=== PATIENT | male | born 1945 | race Caucasian/White ===

== ENCOUNTER 2018-05-28 17:23 | Emergency (ER) | payer OTHER ==
[~2018-05-28] VITALS: Ht 185.4 cm; Wt 93.9 kg
[~2018-05-28 17:23] MED LIST: LIPITOR20 MG PO
[2018-05-28 18:12] VITALS: BP 146/83
== END 2018-05-28 18:13 | disposition home or self-care (01) ==
LOC: ER 17:23
DX: R68.2 Dry mouth, unspecified (principal); T46.6X5A Adverse effect of antihyperlipidemic and antiarteriosclerotic drugs, initial encounter; E78.5 Hyperlipidemia, unspecified

== ENCOUNTER 2018-08-23 17:55 | Emergency (ER) | payer OTHER ==
[~2018-08-23] VITALS: Ht 188 cm; Wt 86.2 kg
[2018-08-23] MEDS ORDERED: ESCITALOPRAM OX10 MG PO (18:15)
[2018-08-23] MEDS ORDERED: XALATAN2.5 ML OPHTHALMIC (18:15)
[2018-08-23] MEDS ORDERED: ZOCOR20 MG PO (18:15)
[2018-08-23] MEDS ORDERED: HYDROCHLOROTH12.5 M2 PO (18:16)
[2018-08-23 20:03] VITALS: BP 156/87
[2018-08-29] MEDS ORDERED: XANAX 0.5 MG0.5 MG PO (15:31)
== END 2018-08-23 20:10 | disposition home or self-care (01) ==
LOC: ER 17:55
DX: T17.228A Food in pharynx causing other injury, initial encounter (principal); X58.XXXA Exposure to other specified factors, initial encounter; Y93.89 Activity, other specified; Y92.89 Other specified places as the place of occurrence of the external cause; Y99.8 Other external cause status

== ENCOUNTER → 2018-08-31 | Outpatient (CLI) | payer OTHER ==
[~2018-08-31] VITALS: Ht 188 cm; Wt 86.2 kg
[~2018-08-31] MED LIST changes: +ESCITALOPRAM OX10 MG PO; +HYDROCHLOROTH12.5 M2 PO; +XALATAN2.5 ML OPHTHALMIC; +XANAX 0.5 MG0.5 MG PO; +ZOCOR20 MG PO
--- NOTE | 2018-09-02 08:24 | P ---
[facility] [place] [address] [place] [address] PROCEDURE REPORT Name: BENEDICTO TAVARES Room #: REG [facility].#: [id number] Admission: 08/31/18 ������������������ Attend Phys: Romero Schwartz Discharge: ������������������ Date of : 43 Report #: [id number] THIS REPORT FOR: //name// CC: Romero Olivia MD DATE OF SERVICE: 08/31/2018 PROCEDURE PERFORMED: Upper endoscopy with biopsies and esophageal dilation. HISTORY OF PRESENT ILLNESS: The patient is a 73-year-old male with a history of dysphagia who actually had a food impaction last week, was seen by myself in the ER, but the food bolus passed spontaneously. He now presents for upper endoscopy with possible dilation. He does report some mild heartburn at times. DESCRIPTION OF PROCEDURE: The risks and benefits of the procedure were explained to the patient, those risks including but not limited to bleeding, perforation and the risk of sedation. He understood these risks and gave informed consent. Sedation was given using propofol per anesthesia. Next, using a standard Olympus upper endoscope, the scope was placed in the patient's mouth and advanced under direct vision through the esophagus, stomach and into the second portion of the duodenum. The upper esophagus was normal. In the mid and distal esophagus, possible changes of eosinophilic esophagitis were noted. Biopsies were obtained. At the GE junction, grade A erosive esophagitis was noted with a stricture as well. I was able to pass the scope through this area. Overall, the gastric mucosa was normal in the fundus and body and mild gastritis was noted in the gastric antrum. Biopsies were obtained to rule out H. pylori. The duodenal bulb showed [id number] duodenitis. No evidence of ulcerations or bleeding. The first and second portion of the duodenum was normal. The scope was then brought back up into the patient's stomach and a Savary guidewire was inserted through the scope, leaving the wire in place as the scope was then withdrawn. Next, I did serial dilations of the esophagus, starting with 33 and ending with 48 observing each time with the endoscope after dilation. There was a small mucosal tear after dilation at 48. No further dilations were performed. No evidence of bleeding. At this point, the scope was then withdrawn and the procedure terminated. The patient tolerated the procedure well. IMPRESSION: 1. Grade A erosive esophagitis. 2. Stricture distal esophagus. 3. Possible eosinophilic esophagitis. 4. Gastritis. 5. Duodenitis. [facility] [address] [place] [address] PROCEDURE REPORT Name: EBNEDICTO TAVARES Room #: REG CLLianna Rivero#: [id number] Admission: 08/31/18 ������������������ Attend Phys: Romero Schwartz Discharge: ������������������ Date of : 43 Report #: [id number] RECOMMENDATIONS: 1. Await biopsy results. 2. Recommend daily PPI therapy. 3. Observe the patient post-dilation. Thank you for allowing me to participate in his care. ��������������������������������������������� <ELECTRONICALLY SIGNED> ���������������������������������������� By: Romero Ventura MD ��������������������������������������������� 09/02/18 0824 1054 2330 Romero Ventura MD /nt
--- NOTE | 2018-09-02 13:08 | PATH ---
[facility] [place] [address] PATHOLOGY RPT PROCEDURE Name: BENEDICTO TAVARES Room #: REG JER[facility]Y Elizabeth.#: [id number] ������������������ Admission: 08/31/18 ������������������ Date of : 43 Discharge: Report #: [id number] Path Case #: [id number] [facility] Accession Number: [id number] . 01 Material submitted: . PART A: stomach - BX GASTRITIS PART B: esophagus - BX ESOPHAGUS . 01 Clinical history: . Pre-op diagnosis: Dysphagia Post-op diagnosis: Gastritis, esophagitis, esophageal stricture A. R/O H. pylori B. R/O eosinophilic esophagitis . 02 Diagnosis: A. Gastric biopsy "biopsy gastritis": - Mild chronic reactive gastropathy. - The immunoperoxidase stain for Helicobacter pylori is negative. . B. Squamous mucosa "biopsy esophagitis": - Eosinophilic esophagitis with 30 to 40 eosinophils/high power field. - There is no evidence of goblet cell metaplasia, dysplasia or malignancy. . (SHA:pit 09/02/2018) QTP/09/02/2018 . 02 Electronically signed: . Darrius Leyva MD, Pathologist NPI- [id number] . 01 Gross description: . A. The specimen is received in formalin, labeled "Benedicto Tavares, biopsy gastritis, R/O H. pylori". Received are four segments of pale pereira soft tissue ranging in size from 0.1 to 0.7 cm in maximum dimensions. The specimen is submitted entirely in cassette A1. . B. The specimen is received in formalin, labeled "Benedicto Tavares, biopsy esophagus, R/O eosinophilic esophagitis". Received are four segments of pale pereira soft tissue ranging in size from 0.5 to 0.6 cm in maximum dimensions. The specimen is submitted entirely in cassette B1. (CAA; 09/01/2018) QAC/QAC . 02 Pathologist provided ICD-10: K31.9, K20.0 . 02 [place] [address] PATHOLOGY RPT PROCEDURE Name: BENEDICTO TAVARES Room #: REG CLI ..#: [id number] ������������������ Admission: 08/31/18 ������������������ Date of : 43 Discharge: Report #: [id number] Path Case #: [id number] Specimen Comment: A courtesy copy of this report has been sent to Specimen Comment: [phone], . Specimen Comment: Report sent to / DR CLEMENTS Performed at: [address], [place], [place] [id number] MD Eran Benoit MD Phone: [phone] Performed at: [address] [id number] MD Archana Mendoza MD Phone: [phone]
== END | disposition home or self-care (01) ==
LOC: GI 08:22
DX: K20.0 Eosinophilic esophagitis (principal); K22.2 Esophageal obstruction; K31.9 Disease of stomach and duodenum, unspecified; F32.9 Major depressive disorder, single episode, unspecified; F41.9 Anxiety disorder, unspecified; I10 Essential (primary) hypertension; K21.9 Gastro-esophageal reflux disease without esophagitis; Z98.890 Other specified postprocedural states; Z79.899 Other long term (current) drug therapy; Z87.891 Personal history of nicotine dependence
CPT/HCPCS: 62110; 62900